=== PATIENT | male | born 1990 | race Caucasian/White ===

== ENCOUNTER 2018-03-04 21:03 | Emergency (ER) | payer MEDICAID ==
[~2018-03-04] VITALS: Ht 175.3 cm; Wt 65.2 kg
[2018-03-04 21:20] VITALS: BP 123/71
== END 2018-03-05 01:24 | disposition left against medical advice (07) ==
LOC: ER 21:04
DX: M79.672 Pain in left foot (principal); M79.671 Pain in right foot; Z53.21 Procedure and treatment not carried out due to patient leaving prior to being seen by health care provider

== ENCOUNTER 2019-05-12 11:48 | Emergency (ER) | payer MEDICAID, OTHER ==
[~2019-05-12] VITALS: Ht 175.3 cm; Wt 63.6 kg
[2019-05-12] MEDS ORDERED: ibuprofen tablet 400 MG TABLET PO ONE (12:30)
[2019-05-12 13:01] VITALS: BP 123/85
== END 2019-05-12 13:02 | disposition home or self-care (01) ==
LOC: ER 11:49
DX: S43.51XA Sprain of right acromioclavicular joint, initial encounter (principal); F10.99 Alcohol use, unspecified with unspecified alcohol-induced disorder; V00.131A Fall from skateboard, initial encounter; Y93.51 Activity, roller skating (inline) and skateboarding; Y92.89 Other specified places as the place of occurrence of the external cause; Y99.8 Other external cause status; Y90.9 Presence of alcohol in blood, level not specified
CPT/HCPCS: 73030; 99284